=== PATIENT | female | born 1945 | race Caucasian/White ===

== ENCOUNTER → 2016-11-08 | Outpatient (REF) | payer MEDICARE, OTHER ==
[~2016-11-08] MED LIST: CALCTAB75 PO; HYDR12.55 PO; ICAPCAP PO; LISI-538 PO; LOVA10TA PO; MULT1TAB10 PO; OXYB10TA PO; PARO20TA3 PO; RANI150T PO; VITA200016 PO; VITA500T53 PO
[2016-11-08 20:37] LABS: ALBUMIN 3.5 GM/DL (3.2-5.2); ALBUMIN/GLOBULIN RATIO 1.06 (1.00-1.93); BILIRUBIN,TOTAL 0.3 MG/DL (0.2-1.0); CALCIUM LEVEL 9.6 MG/DL (8.8-10.2); CREATININE FOR GFR 1.02 MG/DL (0.55-1.02); GLOMERULAR FILTRATION RATE 57.2 (>45); TOTAL PROTEIN 6.8 GM/DL (6.4-8.2)
== END ==
LOC: M LABDRWCV 17:55
PROVIDERS: ATTEND Family Medicine
DX: E78.5 Hyperlipidemia, unspecified (principal)

== ENCOUNTER → 2016-11-17 | Outpatient (CLI) | payer MEDICARE, BC ==
--- NOTE | 2016-11-17 15:20 | REPMRS ---
Patient History The patient states she had a clinical breast exam in 11/17 Patient is postmenopausal. No known family history of cancer. Benign excisional biopsy of the right breast, 1986. Benign excisional biopsy of the right breast, 1959. Took estrogen for 6 years. Digital Woman Screen Mammo: November 17, 2016 - Exam #: [id number] Bilateral CC and MLO view(s) were taken. Technologist: Tanya Vásquez, Technologist Prior study comparison: November 17, 2015, digital woman screen mammo performed at [facility]. November 12, 2014, digital woman screen mammo performed at [facility] [employer] [facility]. FINDINGS: The breast tissue is heterogeneously dense. This may lower the sensitivity of mammography. There has been no change in the appearance of the mammogram from the prior studies. There is a moderate amount of residual fibroglandular tissue which is fairly symmetric. There is no interval development of dominant mass, areas of architectural distortion, or clustered microcalcification typical of malignancy. ASSESSMENT: BI-RADS/ACR category 1 mammogram. Negative. Recommendation Routine screening mammogram in 1 year (for women over age 40). This mammogram was interpreted with the aid of an FDA-approved computer-aided dectection system. Electronically Signed By: Balbir Gonzalez MD 11/17/16 [id number]
--- NOTE | 2016-11-21 09:44 | DEXA ---
AP SPINE L1 - L4 1.203 0.1 1.7 LT FEMUR TOTAL 0.845 -1.3 0.1 RT FEMUR TOTAL 0.884 -1.0 0.4 TOTAL BODY TOTAL OTHER DUAL FEMUR FRAX* ASSESSMENT Risk factors: Not performed. 10 year probability of fracture Major osteoporotic fracture % Hip fracture % COMMENTS: Normal bone densitometry of the spine. There is low bone density of the hips. The decreased density of the spine does represent a significant change. The increased density of the left hip does represent a significant change. The increased density of the right hip does represent a significant change. The density of the spine has increased 10.9% since the initial exam on 2002. The spine density has decreased 2.4% since the most recent exam on 11/12/2014. The density of the left hip has decreased 8.8% since the initial exam on 2002. The density of the left hip has increased 4.3% since the most recent exam on 03/2015. The density of the right hip has decreased 4.1% since the initial exam on 2002. The density of the right hip has increased 2.6% since the most recent exam on . FOLLOW-UP: Recommendation for the next bone density exam: 2 years. AMBREEN
== END ==
LOC: M WHC 13:43
PROVIDERS: ATTEND Nurse Practitioner Women's Health
DX: Z01.419 Encounter for gynecological examination (general) (routine) without abnormal findings (principal); Z12.31 Encounter for screening mammogram for malignant neoplasm of breast; R92.8 Other abnormal and inconclusive findings on diagnostic imaging of breast; Z78.0 Asymptomatic menopausal state
CPT/HCPCS: 77080; G0101; G0202

== ENCOUNTER → 2016-12-23 | Outpatient (REF) | payer MEDICARE, OTHER | LOC: M SFHCWAGY 12:22 | PROVIDERS: ATTEND Family Medicine | DX: N90.4 Leukoplakia of vulva (principal); D28.0 Benign neoplasm of vulva; L85.9 Epidermal thickening, unspecified | CPT/HCPCS: 56405; 88304; G0463 ==

== ENCOUNTER → 2016-12-30 | Outpatient (CLI) | payer MEDICARE, BC, OTHER ==
--- NOTE | 2016-12-30 14:08 | REP ---
Bilateral lower extremity deep vein duplex ultrasound: The deep veins demonstrate normal compression, normal Doppler color flow and normal Doppler waveforms with respiration augmentation at multiple levels from the popliteal veins to the common femoral veins bilaterally. Impression: There is no deep vein thrombus on the right or the left. Bilateral lower extremity venous reflux: Right lower extremity: There is common femoral vein reflux. There is no reflux in the greater saphenous vein. There is no reflux at the greater saphenous vein/femoral vein junction. Greater saphenous vein measures 4 mm in diameter. There is no reflux at the greater saphenous vein at the mid thigh. Greater saphenous vein diameter is 3 mm. There is no reflux in the greater saphenous vein at the knee. Greater saphenous vein diameter is 3 mm. There is minimal reflux in the superficial femoral vein proximally. There is no reflux in the mid or distal superficial femoral vein. There is no reflux in the popliteal vein or in the lesser saphenous vein. The AP dimension of the lesser saphenous vein is 5 mm. Left lower extremity: There is minimal reflux in the common femoral vein. There is no reflux in the anterior accessory greater saphenous vein. There is no reflux in the greater saphenous vein/femoral vein junction. In the greater saphenous vein diameter is 5 mm. There is no reflux the greater saphenous vein at the mid thigh. Vein diameter is 4 mm. There is no reflux at the greater saphenous vein at the knee. Vein diameter is 4 mm. There is no reflux in the proximal mid or distal superficial femoral vein. There is no reflux in the popliteal vein or lesser saphenous vein. Impression: There is no reflux in the greater saphenous vein on the right on the left. There is minimal reflux in the common femoral veins bilaterally and in the right proximal superficial femoral vein. Signed by Balbir Zuniga MD 12/30/2016 01:59 P
== END ==
LOC: M RAD 09:55
PROVIDERS: ATTEND Surgery Vascular Surgery
DX: I83.813 Varicose veins of bilateral lower extremities with pain (principal)

== ENCOUNTER 2017-01-11 09:04 | Outpatient (CLI) | payer MEDICARE, BC, OTHER ==
[~2017-01-11] VITALS: Ht 149.9 cm; Wt 88.0 kg
[2017-01-11] MEDS ORDERED: NS 1,000 ML IV ONE (10:15)
--- NOTE | 2017-01-11 10:32 | ROOR ---
Patient Name: Brianda King Procedure Date: 01/11/2017 10:15 AM Date of : 1945 Age: 71 Room: [facility] Gender: Female Note Status: Finalized Procedure: Upper GI endoscopy Indications: Dysphagia, Heartburn Providers: Giovanni España MD Referring MD: Estevan Dallas MD Requesting Provider: Medicines: Monitored Anesthesia Care Complications: No immediate complications. Procedure: Pre-Anesthesia Assessment: - The heart rate, respiratory rate, oxygen saturations, blood pressure, adequacy of pulmonary ventilation, and response to care were monitored throughout the procedure. The Endoscope was introduced through the mouth, and advanced to the second part of duodenum. The upper GI endoscopy was accomplished without difficulty. The patient tolerated the procedure well. Findings: The Z-line was regular and was found 35 cm from the incisors. No other significant abnormalities were identified in a careful examination of the stomach. The exam of the duodenum was otherwise normal. Impression: - Z-line regular, 35 cm from the incisors. - No specimens collected. - The examination was otherwise normal. Recommendation: - Patient has a contact number available for emergencies. The signs and symptoms of potential delayed complications were discussed with the patient. Return to normal activities tomorrow. Written discharge instructions were provided to the patient. - High fiber diet. - Discharge patient to home. - Follow an antireflux regimen. - Continue present medications. - Return to referring physician. - The findings and recommendations were discussed with the patient's family. Giovanni España MD Giovanni España MD 01/11/2017 10:32:24 AM This report has been signed electronically. Number of Addenda: 0 Note Initiated On: 01/11/2017 10:15 AM Estimated Blood Loss: Estimated blood loss: none.
--- NOTE | 2017-01-11 10:56 | ROOR ---
Patient Name: Brianda King Procedure Date: 01/11/2017 10:16 AM Date of : 1945 Age: 71 Room: [facility] Gender: Female Note Status: Finalized Procedure: Total Colonoscopy to Cecum + Biopsy Polypectomy Indications: High risk colon cancer surveillance: Personal history of colonic polyps Providers: Giovanni España MD Referring MD: Estevan Dallas MD Requesting Provider: Medicines: Monitored Anesthesia Care Complications: No immediate complications. Procedure: Pre-Anesthesia Assessment: - The heart rate, respiratory rate, oxygen saturations, blood pressure, adequacy of pulmonary ventilation, and response to care were monitored throughout the procedure. The Colonoscope was introduced through the anus and advanced to the cecum, identified by appendiceal orifice and ileocecal valve. The colonoscopy was performed without difficulty. The patient tolerated the procedure well. The quality of the bowel preparation was excellent. Findings: The perianal and digital rectal examinations were normal. Non-bleeding internal hemorrhoids were found during retroflexion. The hemorrhoids were small and Grade I (internal hemorrhoids that do not prolapse). Scattered small-mouthed diverticula were found in the recto-sigmoid colon, sigmoid colon and descending colon. A small polyp was found in the cecum. The polyp was sessile. The polyp was removed with a jumbo cold forceps. Resection and retrieval were complete. A small polyp was found in the hepatic flexure. The polyp was sessile. The polyp was removed with a jumbo cold forceps. Resection and retrieval were complete. A small polyp was found at 50 cm proximal to the anus. The polyp was sessile. The polyp was removed with a jumbo cold forceps. Resection and retrieval were complete. The exam was otherwise without abnormality on direct and retroflexion views. Impression: - Non-bleeding internal hemorrhoids. - Diverticulosis in the recto-sigmoid colon, in the sigmoid colon and in the descending colon. - One small polyp in the cecum, removed with a jumbo cold forceps. Resected and retrieved. - One small polyp at the hepatic flexure, removed with a jumbo cold forceps. Resected and retrieved. - One small polyp at 50 cm proximal to the anus, removed with a jumbo cold forceps. Resected and retrieved. - The examination was otherwise normal on direct and retroflexion views. - The exam was otherwise normal to the cecum. Recommendation: - Patient has a contact number available for emergencies. The signs and symptoms of potential delayed complications were discussed with the patient. Return to normal activities tomorrow. Written discharge instructions were provided to the patient. - High fiber diet. - Discharge patient to home. - Continue present medications. - Await pathology results. - Telephone GI clinic for pathology results in 1 week. - Repeat colonoscopy in 5 years for surveillance based on pathology results. - Return to referring physician. - The findings and recommendations were discussed with the patient's family. Giovanni España MD Giovanni España MD 01/11/2017 10:56:20 AM This report has been signed electronically. Number of Addenda: 0 Note Initiated On: 01/11/2017 10:16 AM Estimated Blood Loss: Estimated blood loss: none.
[2017-01-11 11:25] VITALS: BP 136/93
== END 2017-01-11 11:29 | disposition home or self-care (01) ==
LOC: M OPP 09:04
PROVIDERS: ATTEND Internal Medicine Gastroenterology
DX: Z12.11 Encounter for screening for malignant neoplasm of colon (principal); Z86.010 Personal history of colon polyps; K63.5 Polyp of colon; K64.0 First degree hemorrhoids; K57.30 Diverticulosis of large intestine without perforation or abscess without bleeding; R13.10 Dysphagia, unspecified; R12 Heartburn; I10 Essential (primary) hypertension; E78.5 Hyperlipidemia, unspecified; I42.9 Cardiomyopathy, unspecified; Z86.14 Personal history of Methicillin resistant Staphylococcus aureus infection; M19.90 Unspecified osteoarthritis, unspecified site; K21.9 Gastro-esophageal reflux disease without esophagitis; M54.9 Dorsalgia, unspecified; Z92.3 Personal history of irradiation; F32.9 Major depressive disorder, single episode, unspecified; R39.15 Urgency of urination; E66.9 Obesity, unspecified; E56.9 Vitamin deficiency, unspecified; Z96.653 Presence of artificial knee joint, bilateral; F17.210 Nicotine dependence, cigarettes, uncomplicated; Z88.1 Allergy status to other antibiotic agents; Z88.0 Allergy status to penicillin; Z88.2 Allergy status to sulfonamides; Z79.899 Other long term (current) drug therapy; Z79.82 Long term (current) use of aspirin; Z80.49 Family history of malignant neoplasm of other genital organs

== ENCOUNTER 2017-07-25 09:36 | Inpatient (IN) | payer MEDICARE, BC, OTHER ==
[2017-07-25 12:25] LABS: BASO % 0.2 % (0.0-1.0); EOS # 0.1 10^3/uL (0.0-0.50); EOS % 0.3 % (0.0-3.0); IMMATURE GRANULOCYTE % 0.3 % (0-3.0); LYMPH # 0.8 10^3/uL (1.5-4.5); LYMPH % 4.6 % (24.0-44.0); MEAN CORPUSCULAR HEMOGLOBIN 30.7 pg (27.0-33.0); MEAN CORPUSCULAR HGB CONC 34.2 g/dl (32.0-36.5); MEAN CORPUSCULAR VOLUME 89.6 fl (80.0-96.0); MONO # 1.5 10^3/uL (0.0-0.8); MONO % 8.5 % (0.0-5.0); NEUTROPHILS # 14.9 10^3/uL (1.8-7.7); NEUTROPHILS % 86.1 % (36.0-66.0); PLATELET COUNT, AUTOMATED 206 10^3/uL (150-450); RED BLOOD COUNT 4.24 10^6/uL (4.00-5.40); RED CELL DISTRIBUTION WIDTH 13.5 % (11.5-14.5); WHITE BLOOD COUNT 17.3 10^3/uL (4.0-10.0)
[2017-07-25 12:40] LABS: ALBUMIN 3.1 GM/DL (3.2-5.2); ALBUMIN/GLOBULIN RATIO 0.82 (1.00-1.93); ALKALINE PHOSPHATASE 49 U/L (45-117); ALT/SGPT 29 U/L (12-78); ANION GAP 7 MEQ/L (8-16); AST/SGOT 24 U/L (7-37); BILIRUBIN,DIRECT 0.1 MG/DL (0.0-0.2); BLOOD UREA NITROGEN 31 MG/DL (7-18); CALCIUM LEVEL 9.3 MG/DL (8.8-10.2); CARBON DIOXIDE LEVEL 24 MEQ/L (21-32); CHLORIDE LEVEL 107 MEQ/L (98-107); CPK CREATINE PHOSPHOKINASE 89 U/L (26-192); CREATININE FOR GFR 1.11 MG/DL (0.55-1.30); GLOMERULAR FILTRATION RATE 51.7 (>39); GLUCOSE, FASTING 123 MG/DL (70-100); POTASSIUM SERUM 3.5 MEQ/L (3.5-5.1); SODIUM LEVEL 138 MEQ/L (136-145); TOTAL PROTEIN 6.9 GM/DL (6.4-8.2); TROPONIN I < 0.02 NG/ML (< 0.10)
[2017-07-25 12:42] LABS: BILIRUBIN,TOTAL 0.5 MG/DL (0.2-1.0); CK-MB VALUE MASS < 1.0 NG/ML (<3.6); MB/CK RELATIVE INDEX 1.12 (< OR =4)
[2017-07-25 12:45] LABS: LACTIC ACID SEPSIS PROTOCOL 1.5 MMOL/L (0.4-2.0)
[2017-07-25 13:45] LABS: INFLUENZA A AMPLIFICATION NEGATIVE (NEGATIVE); INFLUENZA B AMPLIFICATION NEGATIVE (NEGATIVE); KETONE, URINE AUTO RFX NEGATIVE (NEGATIVE); MUCUS, URINE RFX SMALL (NEGATIVE); NITRITE, URINE AUTO RFX NEGATIVE (NEGATIVE); RBC, URINE AUTO RFX 7 /HPF (0-3); SPECIFIC GRAVITY UR AUTO RFX 1.019 (1.002-1.035); SQUAM EPITHELIAL CELL UR AURFX 1 /HPF (0-6); WBC, URINE AUTO RFX 10 /HPF (0-3)
[2017-07-25 13:53] LABS: LEUKOCYTE ESTERASE UR AUTO RFX 2+ (NEGATIVE)
[2017-07-25 13:55] LABS: AMMONIA 11 uMOL/L (<32)
[2017-07-25 14:50] LABS: ERYTHROCYTE SEDIMENTATION RATE 38 mm/hr (0-30)
[2017-07-25 15:07] LABS: C REACTIVE PROTEIN QUANTITATIV 3.37 MG/DL (0.00-0.30)
[2017-07-25] MEDS: NITROFURANTOIN (MACROBID) 100 MG CAP PO (15:10)
[2017-07-25] MEDS ORDERED: MORPHINE 4 MG/ML 1ML VIAL/SYRINGE (J2270) IV (16:45)
[2017-07-25] MEDS ORDERED: PERCOCET 5MG/325MG TAB PO (16:45)
[2017-07-25] MEDS ORDERED: ONDANSETRON 4MG/2ML VIAL (J2405) IV (16:45)
[2017-07-25] MEDS: ERTAPENEM SODIUM 1 GM in NS MINI-BAG PLUS 50 ML IV (17:50)
[2017-07-25] MEDS: PARoxetine 20 MG TAB PO (17:50)
[2017-07-25] MEDS: ACETAMINOPHEN TAB 650MG DOSE (2X325MG) PO (17:51)
[2017-07-25] MEDS: VANCOMYCIN HCL 1,000 MG, VIAL MATE ADAPTER 1 EACH in D5W 250 ML IV ×2 (18:30→19:45)
[2017-07-25 18:55] LABS: CK-MB VALUE MASS < 1.0 NG/ML (<3.6); CPK CREATINE PHOSPHOKINASE 90 U/L (26-192); MB/CK RELATIVE INDEX 1.11 (< OR =4); TROPONIN I < 0.02 NG/ML (< 0.10)
[2017-07-25] MEDS: VITAMIN D 1,000 INTERNATIONAL UNITS TABLET PO (21:10)
[2017-07-25] MEDS: SENOKOT S TAB PO (21:10)
[2017-07-25] MEDS: FAMOTIDINE 20 MG TAB PO (21:10)
[2017-07-25] MEDS: LISINOPRIL 20 MG TAB PO (21:10)
[2017-07-25] MEDS ORDERED: HEPARIN SOD (PORCINE) 5000 UNITS/ML VIAL SC (22:00)
[2017-07-26] MEDS ORDERED: SIMVASTATIN 10 MG TAB PO (09:00)
[2017-07-26] MEDS ORDERED: oxyBUTYnin *DITROPAN XL* 5 MG TABCR PO (09:00)
[2017-07-26] MEDS ORDERED: CYANOCOBALAMIN 500 MCG TAB PO (09:00)
[2017-07-26] MEDS ORDERED: hydroCHLOROthiazide 12.5 MG CAPSULE PO (09:00)
[2017-07-26] MEDS ORDERED: MULTIVITAMINS/MINERALS THERAP 1 TAB PO (09:00)
[2017-07-28 00:07] LABS: Lyme Disease IgG/IgM Antibodie <0.91 ISR (0.00-0.90); Lyme Disease IgM Ab Quantitati <0.80 index (0.00-0.79)
== END 2017-07-25 21:33 | disposition short-term general hospital (02) | DRG 560 ==
LOC: M ED 21:33 → M ED INP 16:39 → M ED 09:36 → M ED INP 16:36 → M ED 21:33
DX: T84.53XA Infection and inflammatory reaction due to internal right knee prosthesis, initial encounter (principal); I42.9 Cardiomyopathy, unspecified; M00.862 Arthritis due to other bacteria, left knee; Z96.653 Presence of artificial knee joint, bilateral; K21.9 Gastro-esophageal reflux disease without esophagitis; F32.9 Major depressive disorder, single episode, unspecified; E78.5 Hyperlipidemia, unspecified; E55.9 Vitamin D deficiency, unspecified; E66.9 Obesity, unspecified; Z88.0 Allergy status to penicillin; Z88.1 Allergy status to other antibiotic agents; Z79.899 Other long term (current) drug therapy; Z88.2 Allergy status to sulfonamides; Z86.14 Personal history of Methicillin resistant Staphylococcus aureus infection; Y83.1 Surgical operation with implant of artificial internal device as the cause of abnormal reaction of the patient, or of later complication, without mention of misadventure at the time of the procedure

== ENCOUNTER → 2018-01-04 | Outpatient (CLI) | payer MEDICARE, BC | LOC: M WHC 13:56 | DX: Z12.31 Encounter for screening mammogram for malignant neoplasm of breast (principal); R92.8 Other abnormal and inconclusive findings on diagnostic imaging of breast; Z78.0 Asymptomatic menopausal state; Z98.890 Other specified postprocedural states; Z92.23 Personal history of estrogen therapy | CPT/HCPCS: 77067 ==

== ENCOUNTER → 2018-10-12 | Outpatient (REF) | payer MEDICARE, OTHER ==
[~2018-10-12] MED LIST changes: +VITA500T17 PO; -VITA500T53 PO
[2018-10-12 18:09] LABS: APPEARANCE, URINE CLEAR (CLEAR); BACTERIA, URINE AUTO 1+ (NEGATIVE); BILIRUBIN, URINE AUTO NEGATIVE (NEGATIVE); BLOOD, URINE BLOOD NEGATIVE (NEGATIVE); COLOR, URINE YELLOW (YELLOW); GLUCOSE, URINE (UA) AUTO NEGATIVE (NEGATIVE); KETONE, URINE AUTO NEGATIVE (NEGATIVE); LEUKOCYTE ESTERASE, URINE AUTO NEGATIVE (NEGATIVE); MUCUS, URINE SMALL (NEGATIVE); NITRITE, URINE AUTO NEGATIVE (NEGATIVE); PROTEIN, URINE AUTO NEGATIVE (NEGATIVE); RBC, URINE AUTO 1 /HPF (0-3); SPECIFIC GRAVITY URINE AUTO 1.006 (1.002-1.035); SQUAMOUS EPITHELIAL CELL UR AU 0 /HPF (0-6); UROBILINOGEN, URINE AUTO 0.2 mg/dL (0.0-2.0); WBC, URINE AUTO 0 /HPF (0-3)
== END ==
LOC: M LAB REF 17:09
PROVIDERS: ATTEND Obstetrics & Gynecology
DX: N39.41 Urge incontinence (principal)

== ENCOUNTER → 2018-12-19 | Outpatient (REF) | payer MEDICARE, OTHER ==
[~2018-12-19] MED LIST changes: -OXYB10TA PO; +OXYB10TA2 PO
[2018-12-19 19:34] LABS: APPEARANCE, URINE CLEAR (CLEAR); BACTERIA, URINE AUTO NEGATIVE (NEGATIVE); BILIRUBIN, URINE AUTO NEGATIVE (NEGATIVE); BLOOD, URINE BLOOD NEGATIVE (NEGATIVE); COLOR, URINE YELLOW (YELLOW); GLUCOSE, URINE (UA) AUTO NEGATIVE (NEGATIVE); KETONE, URINE AUTO NEGATIVE (NEGATIVE); LEUKOCYTE ESTERASE, URINE AUTO NEGATIVE (NEGATIVE); NITRITE, URINE AUTO NEGATIVE (NEGATIVE); PROTEIN, URINE AUTO NEGATIVE (NEGATIVE); RBC, URINE AUTO 1 /HPF (0-3); SPECIFIC GRAVITY URINE AUTO 1.009 (1.002-1.035); SQUAMOUS EPITHELIAL CELL UR AU 0 /HPF (0-6); UROBILINOGEN, URINE AUTO 0.2 mg/dL (0.0-2.0); WBC, URINE AUTO 0 /HPF (0-3)
== END ==
LOC: M LAB REF 16:16
PROVIDERS: ATTEND Obstetrics & Gynecology
DX: N39.42 Incontinence without sensory awareness (principal)

== ENCOUNTER → 2019-01-04 | Outpatient (CLI) | payer MEDICARE, BC ==
--- NOTE | 2019-01-04 14:30 | REPMRS ---
Patient History The patient states she had a clinical breast exam in 12/2018. Patient is postmenopausal. Family history of endometrial cancer at age 46 in daughter. Benign excisional biopsy of the right breast, 1986. Benign excisional biopsy of the right breast, 1959. Took estrogen for 1 year. 3D TOMOSYNTHESIS WAS PERFORMED. The [facility] lifetime risk for breast cancer is 2.8%. Digital Woman Screen Mammo: January 04, 2019 - Exam #: [id number] Bilateral CC and MLO view(s) were taken. Technologist: Ashlee Robbins, Technologist Prior study comparison: January 04, 2018, bilateral digital woman screen mammo performed at [facility]. November 17, 2016, digital woman screen mammo performed at [facility]. FINDINGS: The breast tissue is heterogeneously dense. This may lower the sensitivity of mammography. There has been no change in the appearance of the mammogram from the prior studies. There is a moderate amount of residual fibroglandular tissue which is fairly symmetric. There is no interval development of dominant mass, areas of architectural distortion, or clustered microcalcification typical of malignancy. Assessment: BI-RADS/ACR category 1 mammogram. Negative Mammogram. Recommendation Routine screening mammogram in 1 year (for women over age 40). This mammogram was interpreted with the aid of an FDA-approved computer-aided dectection system. Electronically Signed By: Balbir Gonzalez MD 01/04/19 [id number]
== END ==
LOC: M WHC 13:08
PROVIDERS: ATTEND Obstetrics & Gynecology
DX: Z12.31 Encounter for screening mammogram for malignant neoplasm of breast (principal); Z78.0 Asymptomatic menopausal state; Z80.49 Family history of malignant neoplasm of other genital organs

== ENCOUNTER → 2019-11-01 | Outpatient (REF) | payer MEDICARE, BC, OTHER ==
[~2019-11-01] MED LIST changes: +CLOP75TA2; +DULO40CA; +FAMO40TA3; +HYDR25TAB; +MYRB50TA; -OXYB10TA2 PO; +OXYB10TA23 PO
== END ==
LOC: M LAB REF 10:59
PROVIDERS: ATTEND Nurse Practitioner Family
DX: N39.0 Urinary tract infection, site not specified (principal)

== ENCOUNTER → 2019-11-22 | Outpatient (CLI) | payer MEDICARE, BC, OTHER ==
--- NOTE | 2019-12-30 08:44 | REP ---
BILATERAL LOWER EXTREMITY ARTERIAL DOPPLER ULTRASOUND HISTORY: Pain in the leg. FINDINGS: The patient was unable to tolerate cuff inflation greater than 160-180 to allow for ankle-brachial indices. Mild plaquing is observed. Normal triphasic waveforms are noted throughout the right lower extremity. In the left lower extremity, monophasic waveforms are noted at and below the proximal SFA. Biphasic waveforms are noted in the distal COGNOS ARCHITECT and distal SAV on the left. No significant stenosis is visualized. Exam quality was slightly inhibited due to body habitus. 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
== END ==
LOC: M RAD 14:08
PROVIDERS: ATTEND Physician Assistant
DX: M79.606 Pain in leg, unspecified (principal); I87.2 Venous insufficiency (chronic) (peripheral)

== ENCOUNTER → 2019-11-25 | Outpatient (CLI) | payer MEDICARE, BC, OTHER ==
--- NOTE | 2019-12-30 08:51 | REP ---
BILATERAL DEEP VEIN ULTRASONOGRAPHY TECHNIQUE: Ultrasonography of the deep venous structures of both right and left thigh were obtained from the level of the common femoral vein to the popliteal vein inclusive along with Doppler interrogative techniques with augmentation, compression, and color flow imaging. REASON FOR EXAM: Venous insufficiency. FINDINGS: There is no abnormal echogenic material seen in any of the deep venous structures of either the right or left thigh. Coaptation was complete bilaterally. Augmentation showed a normal response bilaterally. IMPRESSION: Negative bilateral deep vein thrombosis (DVT) exam. BILATERAL VENOUS INSUFFICIENCY STUDY WAS PERFORMED: On the right, no reflux was seen in the common femoral vein. An anterior accessory greater saphenous vein was present, however, there was no reflux noted. No reflex was seen in the greater saphenous vein at the saphenofemoral junction, the AP dimension of which measured 4.2 mm. Reflux was seen in the greater saphenous vein at the level of the mid thigh, the AP dimension of which measured 4.6 mm and the duration of which was 6.5 seconds. Reflux was seen in the greater saphenous vein at the level of the knee, the AP dimension of which measured 4.1 mm. Reflux was seen continuously at that level. No reflux was seen in any portion of the superficial femoral vein and no reflux was seen in the popliteal vein. Reflux was seen in the lesser saphenous vein, the AP dimension of which measured 3.8 mm and the duration of which was 4.5 seconds. No collateral vessels were identified. On the left, reflux was seen in the common femoral vein. An anterior accessory greater saphenous vein was present, however, no reflux was noted in that vein. Reflux was seen in the greater saphenous vein at the saphenofemoral junction, the AP dimension of which measured 6 mm and the duration of which lasted 6.2 seconds. Reflux was seen in the greater saphenous vein at the mid thigh level, the AP dimension of which measured 6.9 mm. Reflux was seen continuously in that vessel. Reflux was seen in the greater saphenous vein at the knee, the AP dimension of which measured 5.2 mm. Reflux was seen continuously in that vessel. No reflux was seen in any portion of the superficial femoral vein or popliteal vein. Reflux was seen in the lesser saphenous vein, which measured 3.1 mm in dimension AP and reflux was seen continuously in that vessel. IMPRESSION: Abnormal reflux study bilaterally as described above. MTDD
== END ==
LOC: M RAD 14:18
PROVIDERS: ATTEND Physician Assistant
DX: M79.606 Pain in leg, unspecified (principal); I87.2 Venous insufficiency (chronic) (peripheral)

== ENCOUNTER 2019-12-22 19:07 | Emergency (ER) | payer MEDICARE, BC, OTHER ==
[~2019-12-22] VITALS: Ht 149.9 cm; Wt 91.4 kg
[~2019-12-22 19:07] MED LIST changes: -CLOP75TA2; -DULO40CA; -FAMO40TA3; -HYDR25TAB; -MYRB50TA
[2019-12-22] MEDS ORDERED: MYRB50TA (19:25)
[2019-12-22] MEDS ORDERED: CLOP75TA2 (19:25)
[2019-12-22] MEDS ORDERED: HYDR25TAB (19:25)
[2019-12-22] MEDS ORDERED: DULO40CA (19:25)
[2019-12-22] MEDS ORDERED: FAMO40TA3 (19:25)
--- NOTE | 2019-12-22 20:05 | REPVR ---
PROCEDURE INFORMATION: Exam: CT Head Without Contrast Exam date and time: 12/22/2019 7:49 PM Age: 74 years old Clinical indication: Injury or trauma; Fall; Initial encounter; Blunt trauma (contusions or hematomas); Additional info: Fall on blood thinners, struck head TECHNIQUE: Imaging protocol: Computed tomography of the head without contrast. Radiation optimization: All CT scans at this facility use at least one of these dose optimization techniques: automated exposure control; mA and/or kV adjustment per patient size (includes targeted exams where dose is matched to clinical indication); or iterative reconstruction. COMPARISON: No relevant prior studies available. FINDINGS: Brain: There is minimal parenchymal volume loss. White matter changes are demonstrated consistent with age related small vessel white matter angiopathic gliosis. Ventricles: The degree of ventricular dilatation is normal for age and/or degree of atrophy present. Bones/joints: Unremarkable. No acute fracture. Paranasal sinuses: Visualized sinuses are unremarkable. No fluid levels. Mastoid air cells: Visualized mastoid air cells are well aerated. Vasculature: Atherosclerotic calcifications are demonstrated in the intracranial carotid arteries bilaterally as well as in the vertebral basilar system. Soft tissues: Unremarkable. IMPRESSION: 1. There is minimal parenchymal volume loss. White matter changes are demonstrated consistent with age related small vessel white matter angiopathic gliosis. 2. The degree of ventricular dilatation is normal for age and/or degree of atrophy present. 3. No acute intracranial abnormalities. Electronically signed by: Kennedy Love On 12/22/2019 20:04:39 PM
--- NOTE | 2019-12-22 20:09 | REPVR ---
PROCEDURE INFORMATION: Exam: CT Cervical Spine Without Contrast Exam date and time: 12/22/2019 7:49 PM Age: 74 years old Clinical indication: Injury or trauma; Fall; Initial encounter; Blunt trauma TECHNIQUE: Imaging protocol: Computed tomography images of the cervical spine without contrast. Radiation optimization: All CT scans at this facility use at least one of these dose optimization techniques: automated exposure control; mA and/or kV adjustment per patient size (includes targeted exams where dose is matched to clinical indication); or iterative reconstruction. COMPARISON: No relevant prior studies available. FINDINGS: Vertebrae: Multilevel anterolisthesis in the lumbar spine of C2 on C3, C3 on C4, C4 on C5, and C5 on C6. The findings likely chronic. Clinical correlation to exclude a traumatic etiology suggested. Discs/Spinal canal/Neural foramina: There are degenerative changes demonstrated in the atlantoaxial joint at C1-C2 with osteophytes and joint space narrowing. The transverse ligament is unremarkable. Disc space narrowing at C4-C5 through C6-C7 with intervertebral osteophytes. Severe foraminal stenosis on the right and moderate foraminal stenosis on the left at C3, moderate bilateral foraminal stenosis at C4, severe bilateral foraminal stenosis at C5, and moderate bilateral foraminal stenosis at C6 secondary to uncinate joint hypertrophic changes. Multilevel disc osteophyte complexes most pronounced at C5-C6 effaces the ventral subarachnoid space with mild cord impingement. Soft tissues: See "Discs/Spinal canal/Neural foramina" finding. Sinuses: Inflammatory changes in the right maxillary sinus. Mastoid air cells: Poorly pneumatized mastoid sinuses. Lungs: Lung apices are normal. IMPRESSION: 1. Multilevel anterolisthesis in the lumbar spine of C2 on C3, C3 on C4, C4 on C5, and C5 on C6. The findings likely chronic. Clinical correlation to exclude a traumatic etiology suggested. 2. Degenerative spondylosis. 3. No fractures demonstrated. Electronically signed by: Kennedy Love On 12/22/2019 20:08:54 PM
--- NOTE | 2019-12-22 20:10 | REPVR ---
PROCEDURE INFORMATION: Exam: XR Right Shoulder Exam date and time: 12/22/2019 7:56 PM Age: 74 years old Clinical indication: Pain; Shoulder; Right; Additional info: Fall TECHNIQUE: Imaging protocol: XR Right shoulder. Views: 2 or more views. COMPARISON: No relevant prior studies available. FINDINGS: Bones/joints: Normal. Soft tissues: Normal. IMPRESSION: No acute findings. Electronically signed by: Kennedy Love On 12/22/2019 20:10:12 PM
[2019-12-22 21:16] VITALS: BP 134/65
--- NOTE | 2019-12-23 07:51 | ED PDOC ---
Post-Departure Follow-Up ct c spine faxed formal report to dr darden for fu Darius Sebastian MD Dec 23, 2019 07:51
== END 2019-12-22 21:20 | disposition home or self-care (01) ==
LOC: M ED 19:07
DX: S40.211A Abrasion of right shoulder, initial encounter (principal); R04.0 Epistaxis; W01.0XXA Fall on same level from slipping, tripping and stumbling without subsequent striking against object, initial encounter; Y92.410 Unspecified street and highway as the place of occurrence of the external cause; I25.10 Atherosclerotic heart disease of native coronary artery without angina pectoris; Z79.899 Other long term (current) drug therapy; Z79.01 Long term (current) use of anticoagulants; Z88.0 Allergy status to penicillin; Z88.1 Allergy status to other antibiotic agents; Z88.2 Allergy status to sulfonamides

== ENCOUNTER → 2019-12-23 | Outpatient (CLI) | payer MEDICARE, BC, OTHER ==
[~2019-12-23] MED LIST changes: +CLOP75TA2; +CLOPIDOGREL 75 MG TAB As Ordered ONE; +DULO40CA; +FAMO40TA3; +HYDR25TAB; +ISOVUE-300 61% 50ML VIAL As Ordered ONE; +LIDOCAINE W/EPINEPHRINE 1% 20ML VIAL As Ordered ONE; +MIDAZOLAM INJ 2MG/2ML VIAL (J2250 PER 1MG) As Ordered ONE; +MYRB50TA; +fentaNYL 100 MCG/2 ML INJECTION (J3010) As Ordered ONE
[2019-12-23 07:07] LABS: HEMOGLOBIN 13.9 g/dl (12.0-15.5); MEAN CORPUSCULAR HEMOGLOBIN 31.3 pg (27.0-33.0); MEAN CORPUSCULAR HGB CONC 33.1 g/dl (32.0-36.5); MEAN CORPUSCULAR VOLUME 94.6 fl (80.0-96.0); PLATELET COUNT, AUTOMATED 295 10^3/uL (150-450); RED BLOOD COUNT 4.44 10^6/uL (4.00-5.40); WHITE BLOOD COUNT 7.5 10^3/uL (4.0-10.0)
[2019-12-23 07:23] LABS: CALCIUM LEVEL 9.8 MG/DL (8.8-10.2); CREATININE FOR GFR 1.3 MG/DL (0.55-1.30); GLOMERULAR FILTRATION RATE 42.9 (>39); POTASSIUM SERUM 3.8 MEQ/L (3.5-5.1)
--- NOTE | 2019-12-23 08:51 | ROOPDOC ---
[facility] Report Of Operation Report of Operation DATE OF PROCEDURE: 12/23/19 PREPROCEDURE DIAGNOSES: Atherosclerosis in the peters[place] arteries with lifestyle limiting claudication left lower extremity POSTPROCEDURE DIAGNOSES: Same PROCEDURE: 1. Ultrasound-guided access right common femoral artery 2. Aortoiliofemoral arteriogram with oblique views of the left common iliac artery 3. Selection left superficial femoral artery and left lower extremity runoff 4. Angioplasty left superficial femoral artery and popliteal artery with 5 x 200 [place] balloon 5. Balloon expandable stent placement left common iliac artery: 9 x 37 express stent 6. Completion arteriograms 7. Mynx closure right common femoral artery SURGEON: Lemuel Hill MD ANESTHESIA: Local anesthesia 7 mL lidocaine. Moderate intravenous conscious sedation was supervised by Dr. Hill. The patient was independently monitored by a registered nurse assigned to the Department of radiology using automated blood pressure, EKG, and pulse oximetry. The detailed sedation record is permanently stored in the hospital information system. The following is a brief sedation record: Start time 07:52, stop time 08:32, Versed 1 mg IV, fentanyl 50 g IV, heparin 5000 units IV. CONTRAST: 56 mL Isovue-300 INDICATION FOR PROCEDURE: This is a very pleasant 74-year-old patient with atherosclerosis of the [place] arteries and lifestyle limiting claudication and left lower extremity. Risks benefits alternatives to an arteriogram and potent ial intervention were explained to the patient she was agreeable to proceed. Informed consent was obtained. She will receive 1 hour IV fluid hydration prior to the procedure due to mild renal insufficiency. INTERPRETATION: 1. The distal aorta and right iliac system are widely patent. No significant stenoses are noted. The left common iliac artery has a focal 60% stenosis proximally 1 cm distal to the origin, and is otherwise widely patent and runs off 3 widely patent external iliac artery. The left hypogastric artery stenotic. 2. Left common femoral artery and profunda are widely patent. The superficial femoral artery has a 30% stenosis for approximately 10 cm in the proximal mid aspect, and then there is a 70% stenosis in the proximal popliteal artery for about 10 cm. The patient then has good three-vessel tibial runoff, although her vessels are somewhat diminutive I do not see significant stenoses her right limiting plaque. 3. After angioplasty of the SFA and popliteal artery for three-minute inflations, there was widely patent flow with no significant residual stenosis near the popliteal artery, but mild less than 10% residual stenosis noted proximally at the area of heaviest plaque. No dissection or flow limitation was noted, so stent was not placed at this time. 4. After balloon-expandable stent placement in the left common iliac artery, there was widely patent flow with less than 10% residual stenosis due to bulky plaque. No dissection extravasation were noted. REPORT OF OPERATION: The patient was brought to the angiographic suite in stable condition. Her bilateral groins were prepped and draped in a sterile fashion. A timeout was performed. Sedation was administered without complication. Local anesthesia was administered to the skin and subcutaneous tissue over the right common femoral artery. A microneedle was used to access the artery under ultrasound guidance. A wire was passed through this access and the needle was removed. A 4 Surinamese sheath was placed and flushed with saline. Glidewire and flushing catheter were advanced to the distal aorta. An aortoiliofemoral arteriogram was performed. Please see interpretation above. We then went up and over the bifurcation with the Glidewire in the catheter and selected the left common iliac artery. Oblique views of the vessel were performed. Please see interpretation above. Next, we selected the left superficial femoral artery and a left lower extremity runoff was performed. Please see interpretation above. We then advanced the Glidewire into the distal popliteal artery under fluoroscopic guidance. The sheath was exchanged for a 7 [place]amese 45 cm destination sheath and flushed with saline. A 5 x 200 [place] balloon was advanced first into the distal superficial femoral artery and popliteal artery and a three-minute i nflations was performed. Following this there was widely patent flow through the distal SFA and popliteal artery without residual stenosis extravasation or dissection, and no stent was placed. We then placed the balloon over the proximal and mid superficial femoral artery and another three-minute inflations was performed. Following this, there is still 10% residual stenosis at the area of heaviest plaque in the proximal SFA, but no dissection or flow limitation was noted and a stent was not placed at this time. We then retracted the tip of the sheath to the distal left common iliac artery and advanced in 9 x 37 express balloon-expandable stent through the sheath. We then retracted the sheath so the tip was at the very proximal left common iliac artery and position the stent across the stenosis. A quick contrast injection confirmed placement of the stent from the origin of the left common iliac artery across the stenosis to the distal left common iliac artery. The stent was then deployed and completion arteriograms showed widely patent flow through the aorta into the bilateral common iliac arteries and less than 10% residual stenosis in the left common iliac artery due to heavy calcified plaque at the area of focal stenosis. No flow limitation was noted and this concluded the procedure. We exchanged the sheath over the wire for short 7 Surinamese sheath and flushed the sheath with saline. Mynx closure device was deployed at the right common femoral artery under fluoroscopic guidance and good hemostasis was noted. Pressure was held for 5 minutes and sterile dressings were applied. The patient was then taken to recovery in stable condition. She tolerated the procedure and sedation well. ESTIMATED BLOOD LOSS: Approximately 5 mL. COMPLICATIONS: None. PLAN: We will give the patient is single dose of Plavix in recovery, and she will resume her home Plavix tomorrow. She will need to take it easy for the next 48-72 hours, no lifting greater than 5 pounds no strenuous exercise. We will see her in clinic next week to check her perfusion and her progress. We appreciate the opportunity to participate in the care of this patient. LEMUEL HILL MD Dec 23, 2019 08:51
[2019-12-23 12:16] VITALS: BP 160/70
== END ==
LOC: M IRPRO 06:36
PROVIDERS: ATTEND Surgery Vascular Surgery
DX: I70.202 Unspecified atherosclerosis of native arteries of extremities, left leg (principal); I87.2 Venous insufficiency (chronic) (peripheral); E78.00 Pure hypercholesterolemia, unspecified; F32.9 Major depressive disorder, single episode, unspecified; F41.9 Anxiety disorder, unspecified; I10 Essential (primary) hypertension; I42.9 Cardiomyopathy, unspecified; I65.23 Occlusion and stenosis of bilateral carotid arteries; Z79.82 Long term (current) use of aspirin; Z79.899 Other long term (current) drug therapy; Z87.891 Personal history of nicotine dependence; Z88.0 Allergy status to penicillin; Z88.1 Allergy status to other antibiotic agents; Z88.2 Allergy status to sulfonamides; Z88.8 Allergy status to other drugs, medicaments and biological substances
CPT/HCPCS: 37221; 37224; 75710; 80048; 85027; 99152; 99153; C1725; C1760; C1769; C1876; C1887; C1894; J1644; J2250; J3010; Q9967

== ENCOUNTER → 2020-01-30 | Outpatient (CLI) | payer MEDICARE, BC, OTHER ==
[~2020-01-30] MED LIST changes: -CLOPIDOGREL 75 MG TAB As Ordered ONE; -ISOVUE-300 61% 50ML VIAL As Ordered ONE; -LIDOCAINE W/EPINEPHRINE 1% 20ML VIAL As Ordered ONE; -MIDAZOLAM INJ 2MG/2ML VIAL (J2250 PER 1MG) As Ordered ONE; -fentaNYL 100 MCG/2 ML INJECTION (J3010) As Ordered ONE
--- NOTE | 2020-01-30 13:19 | REP ---
INDICATION: [facility] [place] [facility] [place] ARTERIES OF EXT W INTRMT KADEN BI; FILE ROOM COMPARISON: 11/22/2019. TECHNIQUE: Real time gonzalez scale and Duplex Doppler evaluation of the bilateral lower extremity arterial vasculature using linear high frequency transducer. FINDINGS: Gonzalez scale and duplex doppler images demonstrate scattered mild plaquing diffusely bilaterally. There are diffuse triphasic and biphasic waveforms bilaterally. Since the recent angioplasty the appearance of the left lower extremity waveforms as improved, prior study showed monophasic waveforms it throughout the left superficial femoral artery, popliteal artery and extending into the tibioperoneal trunk. There is no focal hemodynamically significant stenosis of the bilateral lower extremities at this time. Peak systolic velocities (cm/sec) Common femoral artery: Right 136; Left 131 Profunda femoris: Right 96; Left 132 SFA (proximal): Right 113; Left 138 SFA (mid): Right 142; Left 166 SFA (distal): Right 137; Left 139 Popliteal artery: Right 73; Left 71 SAV (prox.): Right 95; Left 60 Tibioperoneal trunk: Right 60; Left 93 [employer] (prox.): Right 73; Left 115 [employer] (distal): Right 75; Left 103 SAV (distal): Right 95; Left 96 IMPRESSION: Atheromatous changes with areas of narrowing but no obvious focal occlusion or stenosis. <Electronically signed by Balbir Gonzalez > 01/30/20 [id number]
== END ==
LOC: M RAD 10:57
PROVIDERS: ATTEND Physician Assistant
DX: I70.212 Atherosclerosis of native arteries of extremities with intermittent claudication, left leg (principal)

== ENCOUNTER → 2020-03-09 | Outpatient (CLI) | payer MEDICARE, BC ==
--- NOTE | 2020-03-09 14:27 | REPMRS ---
Patient History The patient states she had a clinical breast exam in 2019. Family history of endometrial cancer at age 46 in daughter. Benign excisional biopsy of the right breast, 1986. Benign excisional biopsy of the right breast, 1959. Took estrogen for 1 year. Digital Woman Screen Mammo: March 09, 2020 - Exam #: [id number] Bilateral CC and MLO view(s) were taken. Technologist: Liudmila Longo, Technologist Prior study comparison: January 04, 2019, bilateral digital woman screen mammo performed at [facility]. January 04, 2018, bilateral digital woman screen mammo performed at [facility]. November 17, 2016, digital woman screen mammo performed at [facility]. FINDINGS: There are scattered fibroglandular densities. The Volpara volumetric breast density category is: B. There is a moderate amount of residual fibroglandular tissue which is fairly symmetric. There is no interval development of dominant mass, architectural distortion, or grouped microcalcification typical of malignancy. There has been no change in the appearance of the mammogram from the prior studies. 3-D tomosynthesis shows no additional findings. Assessment: BI-RADS/ACR category 1 mammogram. Negative Mammogram. Recommendation Routine screening mammogram of both breasts in 1 year (for women over age 40). This patient's [facility] Lifetime Breast Cancer RIsk is estimated at 2.7 %. This mammogram was interpreted with the aid of an FDA-approved computer-aided dectection system. Electronically Signed By: Nate Jensen MD 03/09/20 [id number]
== END ==
LOC: M WHC 12:20
PROVIDERS: ATTEND Obstetrics & Gynecology
DX: Z12.31 Encounter for screening mammogram for malignant neoplasm of breast (principal)

== ENCOUNTER → 2020-04-12 | Outpatient (REF) | payer MEDICARE, OTHER | LOC: M WUC 17:39 | PROVIDERS: ATTEND Physician Assistant | DX: N39.0 Urinary tract infection, site not specified (principal) ==

== ENCOUNTER → 2021-03-12 | Outpatient (CLI) | payer MEDICARE, BC, OTHER ==
[~2021-03-12] MED LIST changes: +HYDR-3490; -HYDR25TAB; -LISI-538 PO; +LISI20TA33 PO
== END ==
LOC: M WHC 12:39
PROVIDERS: ATTEND Obstetrics & Gynecology
DX: Z12.31 Encounter for screening mammogram for malignant neoplasm of breast (principal); Z78.0 Asymptomatic menopausal state

== ENCOUNTER → 2022-06-13 | Outpatient (CLI) | payer MEDICARE, BC, OTHER | LOC: M WHC 10:35 | PROVIDERS: ATTEND Obstetrics & Gynecology | DX: Z12.31 Encounter for screening mammogram for malignant neoplasm of breast (principal) ==

== ENCOUNTER 2022-08-31 10:33 | Day surgery (SDC) | payer MEDICARE, BC, OTHER ==
[~2022-08-31] VITALS: Ht 144.8 cm; Wt 80.1 kg
[~2022-08-31 10:33] MED LIST changes: +ALLE24TA7 PO; +ASPI81TA26 PO; +CALC-175 PO; -DULO40CA; +DULO40CA PO; -FAMO40TA3; +FAMO40TA3 PO; -HYDR-3490; +HYDR-3490 PO; +NS 1,000 ML IV ONE; +WOMETAB PO
[2022-08-31] MEDS ORDERED: fentaNYL 100 MCG/2 ML INJECTION As Ordered ONE (12:10)
[2022-08-31] MEDS ORDERED: propofoL 200 MG/20 ML VIAL As Ordered ONE ×2 (12:10→12:37)
[2022-08-31 13:12] VITALS: BP 119/56
== END 2022-08-31 13:13 | disposition home or self-care (01) ==
LOC: M OPP 10:33
PROVIDERS: ATTEND Internal Medicine Gastroenterology
DX: Z12.11 Encounter for screening for malignant neoplasm of colon (principal); Z86.010 Personal history of colon polyps; K64.0 First degree hemorrhoids; K44.9 Diaphragmatic hernia without obstruction or gangrene; K21.00 Gastro-esophageal reflux disease with esophagitis, without bleeding; G47.33 Obstructive sleep apnea (adult) (pediatric); Z99.89 Dependence on other enabling machines and devices; Z79.02 Long term (current) use of antithrombotics/antiplatelets; Z79.1 Long term (current) use of non-steroidal anti-inflammatories (NSAID); Z79.82 Long term (current) use of aspirin; Z79.899 Other long term (current) drug therapy; Z88.0 Allergy status to penicillin; Z88.1 Allergy status to other antibiotic agents; Z88.2 Allergy status to sulfonamides
CPT/HCPCS: 43239; 88305; G0105; J3010

== ENCOUNTER → 2022-12-02 | Outpatient (CLI) | payer OTHER, MEDICARE ==
[~2022-12-02] MED LIST changes: -NS 1,000 ML IV ONE
== END ==
LOC: M PLARAD 12:36
PROVIDERS: ATTEND Nurse Practitioner Adult Health
DX: M54.50 Low back pain, unspecified (principal)

== ENCOUNTER 2023-07-27 12:25 | Emergency (ER) | payer MEDICARE, BC ==
[~2023-07-27] VITALS: Ht 147.3 cm; Wt 83.3 kg
[~2023-07-27 12:25] MED LIST changes: -CLOP75TA2; +CLOP75TA2 PO; -MYRB50TA; +MYRB50TA PO
[2023-07-27] MEDS ORDERED: REPA420I2 INJ (13:00)
[2023-07-27] MEDS ORDERED: AZEL1SPR3 (13:00)
[2023-07-27] MEDS ORDERED: FLUTISP (13:00)
[2023-07-27 13:56] LABS: BASO % 0.6 % (0.0-1.0); EOS # 0.4 10^3/uL (0.0-0.5); EOS % 5.7 % (0.0-3.0); HEMATOCRIT 40.9 % (36.0-47.0); HEMOGLOBIN 13.6 g/dl (12.0-15.5); LYMPH # 1.3 10^3/uL (1.5-5.0); LYMPH % 21.2 % (24.0-44.0); MEAN CORPUSCULAR HEMOGLOBIN 31.2 pg (27.0-33.0); MEAN CORPUSCULAR HGB CONC 33.3 g/dl (32.0-36.5); MEAN CORPUSCULAR VOLUME 93.8 fl (80.0-96.0); MONO # 0.5 10^3/uL (0.0-0.8); MONO % 8.6 % (2.0-8.0); NEUTROPHILS # 3.9 10^3/uL (1.5-8.5); NEUTROPHILS % 63.6 % (36.0-66.0); PLATELET COUNT, AUTOMATED 241 10^3/uL (150-450); RED BLOOD COUNT 4.36 10^6/uL (4.00-5.40); WHITE BLOOD COUNT 6.2 10^3/uL (4.0-10.0)
[2023-07-27 14:09] LABS: ERYTHROCYTE SEDIMENTATION RATE 30 mm/hr (0-30)
[2023-07-27 14:17] LABS: C REACTIVE PROTEIN QUANTITATIV < 0.40 MG/DL (<1.0)
[2023-07-27 14:18] LABS: ALBUMIN 3.4 G/DL (3.2-5.2); ALKALINE PHOSPHATASE 59 U/L (46-116); ALT/SGPT 31 U/L (7.0-40); AST/SGOT 29 U/L (<34); BILIRUBIN,TOTAL 0.5 MG/DL (0.3-1.2); BLOOD UREA NITROGEN 35 MG/DL (9-23); CALCIUM LEVEL 10.2 MG/DL (8.3-10.6); CARBON DIOXIDE LEVEL 29 MMOL/L (20-31); CHLORIDE LEVEL 102 MMOL/L (98-107); CREATININE FOR GFR 1.29 MG/DL (0.55-1.30); GLOMERULAR FILTRATION RATE 42.8 (>39); GLUCOSE, FASTING 84 MG/DL (74-106); MAGNESIUM LEVEL 1.7 MG/DL (1.8-2.4); POTASSIUM SERUM 4.2 MMOL/L (3.5-5.1); SODIUM LEVEL 137 MMOL/L (136-145); TOTAL PROTEIN 6.5 G/DL (5.7-8.2)
[2023-07-27] MEDS ORDERED: HYDR12.55 PO (15:01)
[2023-07-27] MEDS ORDERED: DULO20CA27 PO (15:01)
[2023-07-27] MEDS ORDERED: HOME MED LIST COMPLETE! XX SCH (15:05)
[2023-07-27] MEDS: GABAPENTIN 300 MG CAP PO ONE (15:29)
[2023-07-27] MEDS ORDERED: NEUR300C PO (16:15)
[2023-07-27 17:21] VITALS: BP 141/54; TEMP 97.2; O2SAT 99
== END 2023-07-27 17:24 | disposition home or self-care (01) ==
LOC: M ED 12:25 → EDBD 12:25 → M ED 17:24
DX: M51.36 Other intervertebral disc degeneration, lumbar region (principal); M54.30 Sciatica, unspecified side; Z96.642 Presence of left artificial hip joint; Z96.659 Presence of unspecified artificial knee joint; Z79.82 Long term (current) use of aspirin; Z79.899 Other long term (current) drug therapy; Z88.0 Allergy status to penicillin; Z88.2 Allergy status to sulfonamides; Z88.8 Allergy status to other drugs, medicaments and biological substances

== ENCOUNTER → 2023-09-06 | Outpatient (CLI) | payer MEDICARE ==
[~2023-09-06] MED LIST changes: +AZEL1SPR3; +DULO20CA27 PO; +FLUTISP; +NEUR300C PO; +REPA420I2 INJ
== END ==
LOC: M WHC 11:33
PROVIDERS: ATTEND Obstetrics & Gynecology
DX: Z12.31 Encounter for screening mammogram for malignant neoplasm of breast (principal); R92.333 Mammographic heterogeneous density, bilateral breasts

== ENCOUNTER → 2023-10-03 | Outpatient (CLI) | payer MEDICARE, BC | LOC: M WHC 14:11 | PROVIDERS: ATTEND Obstetrics & Gynecology | DX: Z13.820 Encounter for screening for osteoporosis (principal); M85.851 Other specified disorders of bone density and structure, right thigh ==

== ENCOUNTER 2023-11-24 12:47 | Observation (INO) | payer MEDICARE, BC ==
[~2023-11-24] VITALS: Ht 147.3 cm; Wt 83.0 kg
[2023-11-24 15:26] LABS: BASO % 0.3 % (0.0-1.0); EOS % 16.6 % (0.0-3.0); HEMATOCRIT 39.3 % (36.0-47.0); HEMOGLOBIN 13.1 g/dl (12.0-15.5); LYMPH % 8.5 % (24.0-44.0); MEAN CORPUSCULAR HEMOGLOBIN 31.1 pg (27.0-33.0); MEAN CORPUSCULAR HGB CONC 33.3 g/dl (32.0-36.5); MEAN CORPUSCULAR VOLUME 93.3 fl (80.0-96.0); MONO % 8.3 % (2.0-8.0); NEUTROPHILS # 7.9 10^3/uL (1.5-8.5); NEUTROPHILS % 65.8 % (36.0-66.0); PLATELET COUNT, AUTOMATED 298 10^3/uL (150-450); RED BLOOD COUNT 4.21 10^6/uL (4.00-5.40)
[2023-11-24] MEDS: NS 1,000 ML IV ONE (15:31)
[2023-11-24 15:41] LABS: ALBUMIN 3.4 G/DL (3.2-5.2); BILIRUBIN,DIRECT 0.2 MG/DL (<0.4); BILIRUBIN,TOTAL 0.6 MG/DL (0.3-1.2); CALCIUM LEVEL 13.1 MG/DL (8.3-10.6); CREATININE FOR GFR 2.48 MG/DL (0.55-1.30); GLOMERULAR FILTRATION RATE 20.1 (>39); POTASSIUM SERUM 3.9 MMOL/L (3.5-5.1)
[2023-11-24] MEDS ORDERED: ESTR62CR (15:43)
[2023-11-24] MEDS ORDERED: VIBE75TA PO (15:43)
[2023-11-24] MEDS: ACETAMINOPHEN *IV* 1,000 MG in IV 1 EA IV ONE (15:50)
[2023-11-24] MEDS ORDERED: FLUTICASONE PROP 0.05% NASAL SPRAY 16 GM (FLONASE) PRN (17:50)
[2023-11-24] MEDS ORDERED: ACET-683 PO (18:05)
[2023-11-24] MEDS ORDERED: HOME MED LIST COMPLETE! XX SCH (18:05)
[2023-11-24] MEDS ORDERED: B-12100010 PO (18:05)
[2023-11-24] MEDS ORDERED: OMEG10002 PO (18:05)
[2023-11-24] MEDS ORDERED: ACETAMINOPHEN TAB 650MG DOSE (2X325MG) PO PRN (18:25)
[2023-11-24] MEDS ORDERED: ONDANSETRON 4MG 2ML VIAL IV PRN (18:50)
[2023-11-24] MEDS: NS 1,000 ML IV SCH (20:06)
[2023-11-24] MEDS: NS 500 ML IV ONE (20:06)
[2023-11-24 20:10] LABS: IONIZED CALCIUM 6.1 MG/DL (4.5-5.3)
[2023-11-24 20:40] VITALS: BP 141/77; TEMP 97; O2SAT 91
[2023-11-24] MEDS ORDERED: CALCIUM/VITAMIN D 500 MG TAB PO SCH (21:00)
[2023-11-24 21:29] LABS: PTH INTACT 15.5 PG/ML (18.5-88.0)
[2023-11-24] MEDS: CALCIUM/VITAMIN D 500 MG TAB PO SCH (21:56)
[2023-11-24] MEDS: AZELASTINE 137MCG NASAL SPY 30 ML (ASTELIN) SCH (21:56)
[2023-11-24] MEDS: ASPIRIN 81MG ENTERIC TABLET PO SCH (21:57)
[2023-11-25] VITALS: O2SAT 98
[2023-11-25 04:33] VITALS: BP 127/47; TEMP 98.2; O2SAT 95
[2023-11-25 05:43] VITALS: O2SAT 98
[2023-11-25 07:05] LABS: HEMOGLOBIN 11.7 g/dl (12.0-15.5); MEAN CORPUSCULAR HEMOGLOBIN 31.2 pg (27.0-33.0); MEAN CORPUSCULAR HGB CONC 33.4 g/dl (32.0-36.5); MEAN CORPUSCULAR VOLUME 93.3 fl (80.0-96.0); PLATELET COUNT, AUTOMATED 259 10^3/uL (150-450); RED BLOOD COUNT 3.75 10^6/uL (4.00-5.40); WHITE BLOOD COUNT 9.5 10^3/uL (4.0-10.0)
[2023-11-25 07:31] LABS: ALBUMIN 2.9 G/DL (3.2-5.2); BILIRUBIN,TOTAL 0.5 MG/DL (0.3-1.2); CALCIUM LEVEL 11.8 MG/DL (8.3-10.6); CREATININE FOR GFR 1.92 MG/DL (0.55-1.30); POTASSIUM SERUM 3.6 MMOL/L (3.5-5.1)
[2023-11-25] MEDS: DULoxetine 20MG CAP (CYMBALTA) PO SCH (09:02)
[2023-11-25] MEDS: oxyBUTYnin *DITROPAN XL* 5 MG TABCR PO SCH (09:02)
[2023-11-25] MEDS: PANTOPRAZOLE 40MG TAB (PROTONIX) PO SCH (09:02)
[2023-11-25] MEDS: CLOPIDOGREL 75 MG TAB PO SCH (09:02)
[2023-11-25 12:30] VITALS: BP 130/46; TEMP 97.7; O2SAT 97
[2023-11-25] MEDS ORDERED: REPA140I2 INJ (17:19)
[2023-11-25] MEDS: MAG SULF 1GM/100ML (MAG RUN) 1 GM in IV 1 EA IV SCH (17:45)
[2023-11-25 20:00] VITALS: BP 150/86; TEMP 98.1; O2SAT 97
[2023-11-26 04:00] VITALS: BP 127/47; TEMP 98.1; O2SAT 97
[2023-11-26 07:18] LABS: BASO % 0.4 % (0.0-1.0); EOS # 2.7 10^3/uL (0.0-0.5); HEMATOCRIT 33.8 % (36.0-47.0); HEMOGLOBIN 11.3 g/dl (12.0-15.5); LYMPH # 1.6 10^3/uL (1.5-5.0); LYMPH % 17.6 % (24.0-44.0); MEAN CORPUSCULAR HEMOGLOBIN 31.2 pg (27.0-33.0); MEAN CORPUSCULAR HGB CONC 33.4 g/dl (32.0-36.5); MEAN CORPUSCULAR VOLUME 93.4 fl (80.0-96.0); MONO # 0.9 10^3/uL (0.0-0.8); MONO % 9.9 % (2.0-8.0); NEUTROPHILS # 3.8 10^3/uL (1.5-8.5); NEUTROPHILS % 41.8 % (36.0-66.0); PLATELET COUNT, AUTOMATED 252 10^3/uL (150-450); RED BLOOD COUNT 3.62 10^6/uL (4.00-5.40); WHITE BLOOD COUNT 9.1 10^3/uL (4.0-10.0)
[2023-11-26 07:41] LABS: ALBUMIN 2.8 G/DL (3.2-5.2); BILIRUBIN,TOTAL 0.5 MG/DL (0.3-1.2); CALCIUM LEVEL 10.9 MG/DL (8.3-10.6); CREATININE FOR GFR 1.55 MG/DL (0.55-1.30); GLOMERULAR FILTRATION RATE 34.6 (>39); MAGNESIUM LEVEL 1.8 MG/DL (1.8-2.4); POTASSIUM SERUM 3.6 MMOL/L (3.5-5.1)
[2023-11-26] MEDS: POTASSIUM CHLORIDE 10MEQ SR TABLET PO ONE (08:56)
[2023-11-26] MEDS: LACTOBACILLUS ACIDOPHILUS CAP (BACID) PO SCH (08:56)
[2023-11-26] MEDS ORDERED: POTASSIUM CHLORIDE 10MEQ SR TABLET PO ONE (09:55)
[2023-11-26 12:00] VITALS: BP 108/50; TEMP 98.1; O2SAT 98
[2023-11-26 20:00] VITALS: BP 129/60; TEMP 98.4
[2023-11-27 04:00] VITALS: BP 142/61; TEMP 97.9
[2023-11-27 08:42] LABS: BASO % 0.4 % (0.0-1.0); EOS # 2.8 10^3/uL (0.0-0.5); HEMATOCRIT 33.8 % (36.0-47.0); HEMOGLOBIN 11.3 g/dl (12.0-15.5); LYMPH # 1.6 10^3/uL (1.5-5.0); LYMPH % 17.1 % (24.0-44.0); MEAN CORPUSCULAR HEMOGLOBIN 31.6 pg (27.0-33.0); MEAN CORPUSCULAR HGB CONC 33.4 g/dl (32.0-36.5); MEAN CORPUSCULAR VOLUME 94.4 fl (80.0-96.0); NEUTROPHILS # 3.9 10^3/uL (1.5-8.5); NEUTROPHILS % 41.3 % (36.0-66.0); PLATELET COUNT, AUTOMATED 222 10^3/uL (150-450); RED BLOOD COUNT 3.58 10^6/uL (4.00-5.40); WHITE BLOOD COUNT 9.4 10^3/uL (4.0-10.0)
[2023-11-27 08:49] LABS: EOS % 29.8 % (0.0-3.0)
[2023-11-27 09:04] LABS: CALCIUM LEVEL 11.2 MG/DL (8.3-10.6); CREATININE FOR GFR 1.62 MG/DL (0.55-1.30); GLOMERULAR FILTRATION RATE 32.9 (>39); MAGNESIUM LEVEL 1.5 MG/DL (1.8-2.4); POTASSIUM SERUM 4.1 MMOL/L (3.5-5.1)
[2023-11-27] MEDS: MAG SULF 1GM/100ML (MAG RUN) 1 GM in IV 1 EA IV SCH (10:52)
[2023-11-27] MEDS ORDERED: AMLO1TAB24 PO (11:00)
[2023-11-27 12:00] VITALS: BP 149/59; TEMP 97.2; O2SAT 96
== END 2023-11-27 14:15 | disposition home or self-care (01) ==
LOC: M ED 12:47 → EEVIPCON 12:48 → M ED INP 12:48 → M MS5PR 20:30
PROVIDERS: ADMIT Hospitalist; ATTEND Hospitalist
DX: K52.9 Noninfective gastroenteritis and colitis, unspecified (principal); N17.9 Acute kidney failure, unspecified; N18.30 Chronic kidney disease, stage 3 unspecified; E83.52 Hypercalcemia; I12.9 Hypertensive chronic kidney disease with stage 1 through stage 4 chronic kidney disease, or unspecified chronic kidney disease; I25.10 Atherosclerotic heart disease of native coronary artery without angina pectoris; F41.9 Anxiety disorder, unspecified; F32.A Depression, unspecified; M17.0 Bilateral primary osteoarthritis of knee; Z96.653 Presence of artificial knee joint, bilateral; R29.6 Repeated falls; R54 Age-related physical debility; N28.1 Cyst of kidney, acquired; Z88.0 Allergy status to penicillin; Z88.1 Allergy status to other antibiotic agents; Z88.2 Allergy status to sulfonamides; Z79.899 Other long term (current) drug therapy; Z79.82 Long term (current) use of aspirin; Z79.02 Long term (current) use of antithrombotics/antiplatelets
CPT/HCPCS: 36415; 71111; 74176; 76775; 80047; 80048; 80053; 80076; 81001; 82306; 82330; 83690; 83735; 83970; 85025; 85027; 86140; 87040; 87086; 87324; 87507; 96361; 96365; 97116; 97161; 97530; 99285; G0378; J0131; J3475

== ENCOUNTER → 2024-07-30 | Outpatient (CLI) | payer MEDICARE, BC ==
[~2024-07-30] MED LIST changes: +ACET-683 PO; +AMLO1TAB24 PO; +B-12100010 PO; +ESTR62CR; +OMEG10002 PO; +REPA140I2 INJ; +VIBE75TA PO
== END ==
LOC: M PLAIMG 13:07
PROVIDERS: ATTEND Family Medicine
DX: R91.1 Solitary pulmonary nodule (principal)